=== PATIENT | female | born 1980 | race Caucasian/White ===

== ENCOUNTER 2019-01-28 15:31 | Emergency (ER) | payer MEDICAID, OTHER ==
[~2019-01-28] VITALS: Ht 162.6 cm; Wt 89.0 kg
[~2019-01-28 15:31] MED LIST: D-ME118S24 PO; PNV1TABL12
[2019-01-28 15:46] VITALS: BP 136/89; PULSE 92; RESP 18; Ht 162.6 cm; Wt 89.0 kg
--- NOTE | 2019-01-28 16:16 | ERD ---
ER Documentation Chief Complaint Chief Complaint COUGH , CHEST CONGESTION X 1 WEEK ROS All systems reviewed and are negative except as per history of present illness. Medications Home Meds Active Scripts D-Methorphan Hb/P-Epd HCl/Bpm (Rypjthzdyu-Xgxndxubgqs-Dq Syr) 118 Ml Syrup, 5 ML PO Q4H PRN for COUGH for 10 Days, #1 BOTTLE Prov:ABDI DE LOS SANTOS DO 01/28/19 Reported Medications Pnv Cmb#21/Iron/Folic Acid ( Complete Caplet) 1 Tab Tablet 08/18/10 Pnv Cmb#21/Iron/Folic Acid ( Complete Caplet) 1 Tab Tablet 08/18/10 Allergies Allergies: Coded Allergies: No Known Drug Allergy (Verified Allergy, Unknown, 09/02/08) Physical Exam Vitals Vital Signs Date Temp Pulse Resp B/P (MAP) Pulse Ox O2 O2 Flow FiO2 Time Delivery Rate 01/28/19 98.7 92 18 136/89 97 15:46 (105) Physical Exam Const: No acute distress Head: Atraumatic Eyes: Normal Conjunctiva ENT: Normal External Ears, Nose and Mouth. Neck: Full range of motion. No meningismus. Resp: Clear to auscultation bilaterally Cardio: Regular rate and rhythm, no murmurs Abd: Soft, non tender, non distended. Normal bowel sounds Skin: No petechiae or rashes Back: No midline or flank tenderness Ext: No cyanosis, or edema Neur: Awake and alert Psych: Normal Mood and Affect Departure Diagnosis: Primary Impression: Cough Condition: Fair Patient Instructions: Preventing Common Respiratory Infections Referrals: [facility] (PCP) Additional Instructions: Call your primary care doctor TOMORROW for an appointment during the next 1-2 days.See the doctor sooner or return here if your condition worsens before your appointment time. ABDI DE LOS SANTOS DO Jan 28, 2019 16:16
== END 2019-01-28 16:15 | disposition home or self-care (01) ==
LOC: E/R 15:31
DX: R05 Cough (principal)
CPT/HCPCS: 99282